=== PATIENT | male | born 1930 | race African-American/Black ===

== ENCOUNTER → 2019-03-19 | Outpatient (CLI) | payer OTHER ==
[~2019-03-19] MED LIST: AMLODIPINE BESY10 MG PO; CARDURA8 MG PO; CRESTOR10 MG PO; IRON325 PO; LOSARTAN POTAS100 MG PO; MICARDIS40 MG; PINDOLOL10 MG PO; SPIRONOLACTONE25 M1 PO
--- NOTE | 2019-03-19 13:17 | 2DMMODE ---
[facility] [place] [address] 2 D/M-MODE ECHOCARDIOGRAM Name: THERESE VILLARREAL Room #: REG SAMANTHA HernandezXiomara#: [id number] Admission: 03/19/19 Attend Phys: Baljeet Infante MD Discharge: Date of : [birth year] Report #: [id number] THIS REPORT FOR: cc: Baljeet Infante MD, Mark A. MD Lundgren, Craig H. MD [facility] ~ THIS REPORT FOR: //name// APPROVED REPORT Study performed: 03/19/2019 10:53:22 EXAM: Comprehensive 2D, Doppler, and color-flow Echocardiogram Patient Location: Out-Patient Room #: Echo lab 2 Status: routine BSA: 1.73 HR: 54 bpm BP: 144/80 mmHg Rhythm: Bradycardia Other Information Study Quality: Good Indications Aortic Valve Disease Diabetes CAD Hypertension/HDD Dizziness 2D Dimensions RVDd: 35.03 mm IVSd: 11.43 (7-11mm) LVOT Diam: 19.82 (18-24mm) LVDd: 56.37 mm PWd: 10.15 (7-11mm) Ascending Ao: 32.84 (22-36mm) LVDs: 35.23 (25-40mm) Aortic Root: 30.20 mm IVC: 18.00 mm Volumes Left Atrial Volume (Systole) Single Plane 4CH: 79.58 mL Single Plane 2CH: 66.59 mL LA ESV Index: 47.00 mL/m2 [facility] [employer] [address] [place] [address] 2 D/M-MODE ECHOCARDIOGRAM Name: THERESE VILLARREAL Room #: REG [facility]#: [id number] Admission: 03/19/19 Attend Phys: Baljeet Infante MD Discharge: Date of : [birth year] Report #: [id number] Aortic Valve AoV Peak Eliu.: 3.96 m/s AO Peak Gr.: 62.58 mmHg LVOT Max P.60 mmHg AO Mean Gr.: 35.12 mmHg LVOT Mean P.57 mmHg AO V2 Mean: 2.76 m/s LVOT Max V: 1.07 m/s AO V2 VTI: 96.61 cm LVOT Mean V: 0.74 m/s CHARO (VTI): 0.90 cm2 LVOT V1 VTI: 28.12 cm CHARO Vmax: 0.84 cm2 AI Vmax: 3.45 m/s SV (LVOT): 86.69 mL AI Barrow: 1.56 m/s2 AI PHT: 642.26 ms Mitral Valve E/A Ratio: 0.6 MV Decel. Time: 278.32 ms MV E Max Eliu.: 0.87 m/s MV A Eliu.: 1.38 m/s MV PHT: 80.71 ms IVRT: 115.34 ms Pulmonary Valve PV Peak Eliu.: 1.25 m/s PV Peak Gr.: 6.24 mmHg Pulmonary Vein P Vein S: 0.53 m/s P Vein A: 0.35 m/s P Vein D: 0.34 m/s P Vein A Dur.: 115.3 msec P Vein S/D Ratio: 1.56 Tricuspid Valve TR Peak Eliu.: 3.52 m/s TR Peak Gr.: 49.42 mmHg PA Pressure: 54.00 mmHg Left Ventricle The left ventricle is normal size. Borderline concentric left ventricular hypertrophy. The left ventricular systolic function is normal. Hypokinesis base of inferior wall. LVEF is 60-65%. Mild diastolic dysfunction is present (impaired relaxation pattern). Right Ventricle The right ventricle is normal size. The right ventricular systolic function is normal. Atria Left atrium is dilated. Right atrium is dilated. [facility] [address] [place] [address] 2 D/M-MODE ECHOCARDIOGRAM Name: THERESE VILLARREAL Room #: REG CL [facility]#: [id number] Admission: 03/19/19 Attend Phys: Baljeet Infante MD Discharge: Date of : [birth year] Report #: [id number] Aortic Valve Aortic valve is heavily calcified. Mild aortic regurgitation. Moderate to severe aortic stenosis. Calculated aortic valve area is 0.9 cm2 with maximum pressure gradient of 63 mmHg and mean pressure gradient of 35 mmHg. Mitral Valve There is mild mitral annular calcification. Mild mitral regurgitation. No evidence of mitral valve stenosis. Tricuspid Valve The tricuspid valve is normal in structure. There is mild tricuspid regurgitation. Estimated PAP 50 mmHg. There is moderate pulmonary hypertension. Pulmonic Valve The pulmonary valve is normal in structure. Trace to mild pulmonic regurgitation. Great Vessels The aortic root is normal in size. IVC is normal in size and collapses >50% with inspiration. Pericardium There is no pericardial effusion. <Conclusion> The left ventricular systolic function is normal. Hypokinesis base of inferior wall. LVEF is 60-65%. Mild diastolic dysfunction Left atrium is dilated. Aortic valve is heavily calcified. Moderate to severe aortic stenosis. Mild insufficiency Calculated aortic valve area is 0.9 cm2 with maximum pressure gradient of 63 mmHg and mean pressure gradient of 35 mmHg. There is mild mitral annular calcification. Mild mitral regurgitation. There is mild tricuspid regurgitation. Estimated pulmonary artery pressure of 50 mmHg. There is no pericardial effusion. <ELECTRONICALLY SIGNED> By: Kwan Sosa MD, FACC 03/19/19 1316 1316 [id number] Kwan Sosa MD, FACC /INF
== END ==
LOC: ULTRA 09:29
DX: I65.23 Occlusion and stenosis of bilateral carotid arteries (principal); I08.8 Other rheumatic multiple valve diseases; I35.0 Nonrheumatic aortic (valve) stenosis; E11.9 Type 2 diabetes mellitus without complications; I25.10 Atherosclerotic heart disease of native coronary artery without angina pectoris; I11.9 Hypertensive heart disease without heart failure